=== PATIENT | female | born 1985 ===

== ENCOUNTER 2022-12-02 08:45 | Inpatient (IN) | payer OTHER ==
[~2022-12-02] VITALS: Ht 160 cm; Wt 90.7 kg
[2022-12-02] MEDS ORDERED: LIPITOR20 MG PO (10:29)
[2022-12-05] MEDS ORDERED: OMEPRAZOLE40 MG (08:15)
== END 2022-12-07 12:08 | disposition home or self-care (01) | DRG 743 ==
LOC: O/R 12-05 05:00 → SURH 12-05 08:45 → OB/GYN 12-05 12:05
PROVIDERS: ADMIT Obstetrics & Gynecology; ATTEND Obstetrics & Gynecology
PROC: 0UB90ZZ Excision of Uterus, Open Approach (ICD-10-PCS; principal; 2022-12-05 09:15)
DX: D25.1 Intramural leiomyoma of uterus (principal); Z20.822 Contact with and (suspected) exposure to COVID-19

== ENCOUNTER 2023-04-28 09:28 | Outpatient (CLI) | payer OTHER ==
[~2023-04-28 09:28] MED LIST: LIPITOR20 MG PO; OMEPRAZOLE40 MG
== END 2023-04-28 09:46 | disposition home or self-care (01) ==
LOC: SONOGRAMA 09:28
PROVIDERS: ATTEND Physical Medicine & Rehabilitation
DX: M77.11 Lateral epicondylitis, right elbow (principal)